=== PATIENT | female | born 1995 | race American Indian/Alaskan Native ===

== ENCOUNTER 2021-01-17 23:30 | Emergency (ER) | payer SELFPAY ==
[2021-01-17] MEDS ORDERED: HYDROcodone/ACETAMINOPHEN 5-325 MG TAB PO ONE (23:56)
[2021-01-17] MEDS ORDERED: IBUPROFEN 600 MG TAB PO ONE (23:56)
[2021-01-18 00:39] LABS: Basophils # (Auto) 0.1 K/mm3 (0.0-0.1); Basophils % (Auto) 0.8 % (0.0-1.8); Eosinophils # (Auto) 0.2 K/mm3 (0.0-0.4); Eosinophils % (Auto) 1.3 % (0.0-4.3); Hematocrit 38.3 % (30.3-42.9); Hemoglobin 12.4 gm/dl (10.1-14.3); Lymphocytes # (Auto) 3.2 K/mm3 (1.2-5.4); Lymphocytes % (Auto) 26.5 % (13.4-35.0); Mean Corpuscular HGB Conc 33 % (30-34); Mean Corpuscular Volume 86 fl (79-97); Monocytes # (Auto) 0.6 K/mm3 (0.0-0.8); Monocytes % (Auto) 4.6 % (0.0-7.3); Platelet Count 298 K/mm3 (140-440); Red Blood Count 4.44 M/mm3 (3.65-5.03); Red Cell Distribution Width 14.1 % (13.2-15.2)
[2021-01-18 00:52] LABS: INR 0.98 (0.87-1.13); Partial Thromboplastin Time 23.4 Sec. (24.2-36.6)
[2021-01-18 01:12] LABS: Alanine Aminotransferase 15 units/L (7-56); Albumin 3.9 g/dL (3.9-5); Blood Urea Nitrogen 6 mg/dL (7-17); Calcium 8.8 mg/dL (8.4-10.2); Hemolysis Index 2
[2021-01-18 01:19] VITALS: BP 97/67
[2021-01-18 01:19] LABS: BUN/Creatinine Ratio 9
--- NOTE | 2021-01-18 01:32 | Vascular Lab Report ---
DUPLEX DOPPLER LOWER EXTREMITY VEINS, BILATERAL INDICATION / CLINICAL INFORMATION: Severe right calf pain, h/o DVT. TECHNIQUE: Duplex doppler imaging was performed through the veins of both lower extremities using venous ara briana and other maneuvers. COMPARISON: None available. FINDINGS: RIGHT COMMON FEMORAL VEIN: Negative. RIGHT FEMORAL VEIN: Negative. RIGHT POPLITEAL VEIN: Negative. RIGHT CALF VEINS: Negative. LEFT COMMON FEMORAL VEIN: Negative. LEFT FEMORAL VEIN: Negative. LEFT POPLITEAL VEIN: Negative. LEFT CALF VEINS: Negative. ADDITIONAL FINDINGS: None. IMPRESSION: 1. No sonographic evidence for DVT in either lower extremity. Signer Name: Erick Chambers MD Signed: 01/18/2021 1:27 AM Workstation Name: [id number]
--- NOTE | 2021-01-18 03:29 | Emergency Department Report ---
ED Extremity Problem HPI - General Chief complaint: Extremity Injury, Lower Stated complaint: RT LEG PAIN;H/O DVTS Source: patient Mode of arrival: Ambulatory Limitations: No Limitations - History of Present Illness Initial comments: Patient is a 26-year-old -[place] female with a history of morbid obesity, PE and bilateral DVTs who presents to the ED with complaint of acute onset persistent nontraumatic severe right lower leg pain constantly for the last 2 days. Patient also complains of shortness of breath in the last 12 hours. Patient states that she just arrived in [place] 2 days ago after driving on the road for [facility], a total of over [address]. Patient states that the last time she had DVT was about 12 months ago and that she took blood thinners for a while before she was weaned out of them. Patient states that she is currently not on any medications for DVT prophylaxis. Patient denies chest pain, dizziness, syncope, nausea and vomiting, fever, chills, traumatic injury, heavy lifting, cough, change in vision, numbness and tingling or weakness of lower extremities bilaterally, headache, palpitations, diaphoresis, back pain or hip pain. MD Complaint: extremity pain (Right calf and leg pain), joint swelling (Right knee pain), other (Shortness of breath) -: Sudden, days(s) (2) Location: lower extremity (Right lower leg pain) History of Same: Yes (History of DVT and PE) -: Yes arthralgia (Right leg pain), Yes associated dyspnea, No associated chest pain Radiation: distal Severity scale (0 -10): 10 Quality: aching, sharp Consistency: constant Improves with: nothing Worsens with: weight bearing, walking, exertion, palpation Associated Symptoms: denies other symptoms, shortness of breath, arthralgias (Right leg pain). denies: chest pain, fever, myalgias - Related Data Allergies Allergy/AdvReac Type Severity Reaction Status Date / Time No Known Allergies Allergy Unverified 01/18/21 01:14 ED Review of Systems ROS: Stated complaint: RT LEG PAIN;H/O DVTS Other details as noted in HPI Constitutional: denies: chills, fever Eyes: denies: eye pain, eye discharge, vision change ENT: denies: ear pain, throat pain Respiratory: shortness of breath. denies: cough, wheezing Cardiovascular: denies: chest pain, palpitations Endocrine: no symptoms reported Gastrointestinal: denies: abdominal pain, nausea, vomiting, diarrhea Genitourinary: denies: urgency, dysuria, discharge Musculoskeletal: arthralgia (Right lower leg pain), myalgia. denies: back pain, joint swelling Skin: denies: rash, lesions Neurological: denies: headache, weakness, paresthesias Psychiatric: denies: anxiety, depression Hematological/Lymphatic: denies: easy bleeding, easy bruising ED Past Medical Hx - Past Medical History Previous Medical History?: Yes Hx Deep Vein Thrombosis: Yes (Bilateral legs and arms) Hx Pulmonary Embolism: Yes - Surgical History Past Surgical History?: No ED Physical Exam - General Limitations: No Limitations General appearance: alert, in no apparent distress - Head Head exam: Present: atraumatic, normocephalic, normal inspection - Eye Eye exam: Present: normal appearance, PERRL, EOMI Pupils: Present: normal accommodation - ENT ENT exam: Present: normal exam, normal orophraynx, mucous membranes moist, TM's normal bilaterally, normal external ear exam - Neck Neck exam: Present: normal inspection, full ROM - Respiratory Respiratory exam: Present: normal lung sounds bilaterally. Absent: respiratory distress, wheezes, rales, rhonchi, stridor, chest wall tenderness, decreased breath sounds, prolonged expiratory - Cardiovascular Cardiovascular Exam: Present: regular rate, normal rhythm, normal heart sounds. Absent: systolic murmur, diastolic murmur, rubs, gallop - GI/Abdominal GI/Abdominal exam: Present: soft, normal bowel sounds. Absent: tenderness, guarding, rebound, hyperactive bowel sounds, hypoactive bowel sounds, organomegaly - Extremities Exam Extremities exam: Present: normal inspection, full ROM, tenderness (Palpable severe posterior right calf tenderness), normal capillary refill, calf tenderness (Posterior right calf tenderness). Absent: pedal edema, joint swelling - Back Exam Back exam: Present: normal inspection, full ROM, rash noted. Absent: tenderness, CVA tenderness (R), CVA tenderness (L), muscle spasm, paraspinal tenderness, vertebral tenderness - Neurological Exam Neurological exam: Present: alert, oriented X3, CN II-XII intact, normal gait, reflexes normal - Psychiatric Psychiatric exam: Present: normal affect, normal mood, anxious - Skin Skin exam: Present: warm, dry, intact, normal color. Absent: rash ED Course Vital Signs 01/18/21 01/18/21 01/18/21 01:17 01:22 01:23 Temperature 98.3 F Pulse Rate 93 H Respiratory 20 20 20 Rate Blood Pressure 97/67 [Right] O2 Sat by Pulse 98 Oximetry ED Medical Decision Making - Lab Data Result diagrams: 01/18/21 00:06 01/18/21 00:06 - Radiology Data Radiology results: report reviewed, image reviewed [facility] [address] [place] [address] Vascular Lab Report Signed Patient: PAXTON ALVARADO MR# : [id number] : 1995 Acct:[id number] Age/Sex: 26 / F ADM Date: 01/17/21 Loc: ED Attending Dr: Ordering Physician: ROSSY OSEGUERA Date of Service: 01/17/21 Procedure(s): VL venous duplex LE BILAT Accession Number(s): [id number] cc: ROSSY OSEGUERA DUPLEX DOPPLER LOWER EXTREMITY VEINS, BILATERAL INDICATION / CLINICAL INFORMATION: Severe right calf pain, h/o DVT. TECHNIQUE: Duplex doppler imaging was performed through the veins of both lower extremities using venous compression and other maneuvers. COMPARISON: None available. FINDINGS: RIGHT COMMON FEMORAL VEIN: Negative. RIGHT FEMORAL VEIN: Negative. RIGHT POPLITEAL VEIN: Negative. RIGHT CALF VEINS: Negative. LEFT COMMON FEMORAL VEIN: Negative. LEFT FEMORAL VEIN: Negative. LEFT POPLITEAL VEIN: Negative. LEFT CALF VEINS: Negative. ADDITIONAL FINDINGS: None. IMPRESSION: 1. No sonographic evidence for DVT in either lower extremity. Signer Name: Erick Chambers MD Signed: 01/18/2021 1:27 AM Workstation Name: [id number] Transcribed By: SAMUEL Dictated By: Erick Chambers MD Electronically Authenticated By: Erick Chambers MD Signed Date/Time: 01/18/21126 DD/ 6 TD/TT: - Medical Decision Making This is a 26-year-old -[place] female with a history of morbid obesity, PE and bilateral DVTs who presents to the ED with complaint of acute onset persistent nontraumatic severe right lower leg pain constantly for the last 2 days. Patient also complains of shortness of breath in the last 12 hours. Patient states that she just arrived in [place] 2 days ago after driving on the road for [facility], a total of over [address]. Patient states that the last time she had DVT was about 12 months ago and that she took blood thinners for a while before she was weaned out of them. Patient states that she is currently not on any medications for DVT prophylaxis. In the ED, patient is alert and oriented x3 and is not in any distress but appears to be in significant pain, anxious and crying during the physical exam. Lab test results were reviewed and showed acute leukocytosis of 12,000. The rest of the lab test results are nonactionable. Bilateral lower extremity Doppler ultrasound showed no sonographic evidence of DVTs. Patient was treated for pain in the ED and on reevaluation, patient's pain is well controlled medications. Patient however declined chest CTA procedure to rule out PE and eloped from the ED without signing any AMA form. - Differential Diagnosis DVT; muscle strain; osteoarthritis; muscle spasm; PE; anxiety Critical care attestation.: If time is entered above; I have spent that time in minutes in the direct care of this critically ill patient, excluding procedure time. ED Disposition Clinical Impression: Muscle spasm of right lower extremity Muscle strain of right lower extremity Qualifiers: Encounter type: initial encounter Qualified Code(s): S86.911A - Strain of unspecified muscle(s) and tendon(s) at lower leg level, right leg, initial enco unter Disposition: Z-07 ELOPED Is pt being admited?: No Does the pt Need Aspirin: No Condition: Undetermined Instructions: Muscle Cramps and Spasms, [id number], Muscle Strain, [id number] Additional Instructions: Lab test results were reviewed and are all nonactionable. Bilateral lower extremity Doppler ultrasound showed no sonographic evidence of DVT. Therefore your symptoms are likely due to muscle strain and muscle spasm following a re cent long road trip. Therefore take medications as needed for pain, drink plenty of fluids and follow-up with your primary care physician in 5 to 7 days for reevaluation. Return to the ED immediately if symptoms get worse. Referrals: [facility] [Provider Group] - 3-5 Days Time of Disposition: 02:30 Print Language: ARMENIAN
== END 2021-01-18 02:30 | disposition left against medical advice (07) ==
LOC: ED 23:30
DX: S86.911A Strain of unspecified muscle(s) and tendon(s) at lower leg level, right leg, initial encounter (principal); M62.838 Other muscle spasm; E66.01 Morbid (severe) obesity due to excess calories; Z68.41 Body mass index [BMI] 40.0-44.9, adult; X58.XXXA Exposure to other specified factors, initial encounter; Y93.89 Activity, other specified; Y92.89 Other specified places as the place of occurrence of the external cause; Y99.8 Other external cause status
CPT/HCPCS: 36415; 80053; 84484; 84703; 85025; 85610; 85730; 93970